=== PATIENT | female | born 1965 | race Caucasian/White ===

== ENCOUNTER 2020-07-29 13:59 | Emergency (ER) | payer MEDICARE, MEDICAID ==
[~2020-07-29] VITALS: Ht 175.3 cm; Wt 57.0 kg
[~2020-07-29 13:59] MED LIST: IBUP-1985 PO
--- NOTE | 2020-07-29 14:00 | NUR ---
PATIENT IN ROOM 20 IN ER OVERFLOW AND IS NOT COOPERATING WITH OUR INTAKE. PATIENT IS REFUSING TO GET UNDRESSED. SECURITY CALLED FOR STANDBY. PATIENT IS ANGRY AND YELLING OUT. I AGREED TO ALLOW HER TO WEAR HER BRA AND HER UNDERWEAR AFTER EXAMINING THEM FOR CONTRABAND. NONE NOTED.
[2020-07-29] MEDS ORDERED: ibuprofen tablet 400 MG TABLET PO ONE (14:15)
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
[2020-07-29 14:52] LABS: BASOPHILS % (AUTO) 0.5 % (0-1); EOSINOPHILS # (AUTO) 0.1 X10'3 (0-0.9); EOSINOPHILS % (AUTO) 0.9 % (0-6); HEMATOCRIT 41.6 % (35.0-45.0); HEMOGLOBIN 14.2 g/dl (12.0-16.0); LYMPHOCYTES # (AUTO) 2.4 X10'3 (1.1-4.8); LYMPHOCYTES % (AUTO) 27.8 % (21-51); MEAN CORPUSCULAR HEMOGLOBIN 30.2 PG (27.0-31.0); MEAN CORPUSCULAR VOLUME 88.8 FL (78-98); MEAN PLATELET VOLUME 6.7 FL (7.4-10.4); MONOCYTES # (AUTO) 0.7 X10'3 (0-0.9); MONOCYTES % (AUTO) 7.7 % (2-12); NEUTROPHILS # (AUTO) 5.6 X10'3 (1.8-7.7); NEUTROPHILS % (AUTO) 63.1 % (42-75); PLATELET COUNT 347 X10'3 (140-440); RED BLOOD COUNT 4.69 X10'6 (4.20-5.60); RED CELL DISTRIBUTION WIDTH 13.4 % (11.5-14.5); WHITE BLOOD COUNT 8.8 X10'3 (4.5-11.0)
--- NOTE | 2020-07-29 15:01 | NUR ---
Patient's mother called. Mother stated her about 1 week ago in [place]. has not lived with patient for years because he was an alcoholic.
[2020-07-29] MEDS ORDERED: PRAZ5CAP PO (15:04)
[2020-07-29] MEDS ORDERED: FLUO20CA39 PO (15:07)
[2020-07-29] MEDS ORDERED: TRAZ-256 PO (15:07)
[2020-07-29] MEDS ORDERED: TOPI200T PO (15:07)
[2020-07-29 15:08] LABS: ALANINE AMINOTRANSFERASE 18 U/L (12-78); ALBUMIN 3.7 G/DL (3.4-5.0); ALBUMIN/GLOBULIN RATIO 1.2 (1.1-1.5); ALKALINE PHOSPHATASE 67 IU/L (46-116); ANION GAP 8 (8-16); ASPARTATE AMINO TRANSFERASE 11 U/L (10-37); BILIRUBIN,TOTAL 0.4 MG/DL (0.1-1.0); BLOOD UREA NITROGEN 24 MG/DL (7-18); BUN/CREATININE RATIO 26.4 (6.6-38.0); CHLORIDE 107 MMOL/L (99-107); CREATININE 0.91 MG/DL (0.40-0.90); GLUCOSE 100 MG/DL (70-104); POTASSIUM 3.4 MMOL/L (3.5-5.1); SODIUM 141 MMOL/L (135-145); TOTAL CARBON DIOXIDE 26.5 MMOL/L (24-32); TOTAL PROTEIN 6.7 G/DL (6.4-8.2); eGFR 64 ML/MIN
[2020-07-29 15:18] LABS: ETHANOL < 0.010 GM/DL (0.0-0.010)
--- NOTE | 2020-07-29 15:24 | NUR ---
PT'S MOTHER, ISABEL'S PHONE NUMBER IS [phone].
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
[2020-07-29 15:42] LABS: URINE HCG NEGATIVE (NEG)
[2020-07-29 15:44] LABS: URINE AMPHETAMINE SCREEN NEGATIVE (Neg); URINE BARBITUATE SCREEN NEGATIVE (Neg); URINE BENZODIAZEPINES SCREEN NEGATIVE (Neg); URINE CANNABINOID SCREEN NEGATIVE (Neg); URINE COCAINE SCREEN POSITIVE (Neg); URINE METHADONE SCREEN NEGATIVE (Neg); URINE OPIATE SCREEN NEGATIVE (Neg); URINE PHENCYCLIDINE SCREEN NEGATIVE (Neg)
--- NOTE | 2020-07-29 15:52 | NUR ---
Need more urine for a u/a. Not enough given. Continue to monitor.
--- NOTE | 2020-07-29 15:56 | NUR ---
PACKET FAXED TO [facility]
[2020-07-29 16:19] LABS: CLARITY,URINE CLEAR (Clear); COLOR,URINE STRAW (Yellow); GLUCOSE, URINE NEGATIVE (Neg); KETONES,URINE NEGATIVE (Neg); LEUKOCYTE ESTERASE ,URINE SMALL (Neg); NITRITES, URINE NEGATIVE (Neg); OCCULT BLOOD,URINE SMALL (Neg); PROTEIN,URINE NEGATIVE (Neg); UROBILINOGEN,URINE 0.2 E.U/dL (0.2-1.0)
[2020-07-29 16:21] LABS: UA COLLECTION TYPE CLN CATCH MIDSTREAM
[2020-07-29 16:35] LABS: BACTERIA,URINE FEW /HPF (Neg); RBC,URINE 0-2 /HPF (0-2); SQUAMOUS EPITHELIAL CELL,UR FEW /LPF (FEW); WBC,URINE 0-4 /HPF (0-4)
--- NOTE | 2020-07-29 17:35 | NUR ---
Andrew URIOSTEGUI, evaluating patient. Continue to monitor.
--- NOTE | 2020-07-29 18:30 | NUR ---
MARY ALICE FUENTES CALLED [facility] BECAUSE PATIENT IS DR CARRILLO'S PATIENT OUTSIDE THE HOSPITAL. PER ALFREDO, [facility] HAS A FEMALE BED AVAILABLE
[2020-07-29] MEDS ORDERED: FLUoxetine 20mg capsule PO SCH (20:00)
[2020-07-29] MEDS ORDERED: topiramate 100mg tablet PO SCH (20:00)
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
[2020-07-29] MEDS ORDERED: prazosin 5mg capsule PO SCH (21:00)
[2020-07-29] MEDS ORDERED: traZODone 150mg tablet PO SCH (21:00)
--- NOTE | 2020-07-29 22:30 | NUR ---
PATIENT APPEARS TO BE SLEEPING ON HER BACK, EYES CLOSED RR EVEN AND UNLABORED, OCASSIONALLT SNORING
--- NOTE | 2020-07-29 23:33 | NUR ---
PER JODI [facility] RN: "WE NEVER GOT AHOLD OF DR CARRILLO, SO THE PATIENT CAN NOT COME UP HERE" SHE IS A PATIENT OF DR CARRILLO'S
[2020-07-30 00:23] VITALS: BP 134/73
[2020-07-30] MEDS ORDERED: FLUoxetine 20mg capsule PO SCH (08:00)
== END 2020-07-30 00:29 ==
LOC: ER 13:59
DX: F29 Unspecified psychosis not due to a substance or known physiological condition (principal); R45.1 Restlessness and agitation; F20.9 Schizophrenia, unspecified; Z60.2 Problems related to living alone; Z79.899 Other long term (current) drug therapy
CPT/HCPCS: 36415; 80053; 80305; 80320; 81001; 81025; 84443; 85025; 87088; 87635; C9803

== ENCOUNTER 2020-12-31 12:09 | Emergency (ER) | payer MEDICARE, MEDICAID ==
[~2020-12-31] VITALS: Ht 175.3 cm; Wt 71.0 kg
[~2020-12-31 12:09] MED LIST changes: +FLUO20CA39 PO; -IBUP-1985 PO; +NAPR-56 PO; +PALI3TAB5 PO; +PRAZ5CAP PO; +TOP100T PO; +TRAZ150T78 PO; +etomidate 2mg/ml inj. ONE; +rocuronium 10mg/ml inj IV ONE
[2020-12-31] MEDS ORDERED: epiNEPHrine 1 mg/ml inj IM STA (12:18)
[2020-12-31] MEDS ORDERED: diphenhydrAMINE 50 mg/ml inj IM ONE (12:20)
[2020-12-31] MEDS ORDERED: racepinephrine 11.25mg/0.5ml nebule ONE (12:22)
[2020-12-31] MEDS ORDERED: racepinephrine 11.25mg/0.5ml nebule IH PRN (12:30)
[2020-12-31] MEDS ORDERED: dexamethasone sod phosphate 10mg/ml inj IV STA (13:07)
[2020-12-31] MEDS ORDERED: famotidine/PF 10 mg/ml inj IV ONE (13:10)
--- NOTE | 2020-12-31 13:54 | NUR ---
called by [facility] officer working with pt with mental health, stated he is the pt ride home. call once dc'timo [phone] Addendum: 12/31/20 at 1356 by NAYELI note by karan
[2020-12-31 14:24] VITALS: BP 146/89
[2020-12-31] MEDS ORDERED: EPIN0.3P3 IM (14:34)
[2020-12-31] MEDS ORDERED: PRED50TA PO (14:34)
[2020-12-31] MEDS ORDERED: DIPH-423 PO (14:35)
[2020-12-31] MEDS ORDERED: FAMO40TA73 PO (14:35)
== END 2020-12-31 14:56 | disposition home or self-care (01) ==
LOC: ER 12:10
DX: T78.2XXA Anaphylactic shock, unspecified, initial encounter (principal); R60.9 Edema, unspecified; F20.9 Schizophrenia, unspecified; Z60.2 Problems related to living alone; Z79.899 Other long term (current) drug therapy; Y92.89 Other specified places as the place of occurrence of the external cause
CPT/HCPCS: 94640; 96372; 96374; 96375; 99291; J0171; J1100; J1200; J3490; 94760

== ENCOUNTER 2021-02-12 13:06 | Emergency (ER) | payer MEDICARE, MEDICAID ==
[~2021-02-12] VITALS: Ht 175.3 cm; Wt 79.5 kg
[~2021-02-12 13:06] MED LIST changes: +DIPH-423 PO; +EPIN0.3P3 IM; +FAMO40TA73 PO; +PRED50TA PO; -etomidate 2mg/ml inj. ONE; -rocuronium 10mg/ml inj IV ONE
[2021-02-12 13:21] VITALS: BP 165/81
[2021-02-12] MEDS ORDERED: acetaminophen 325mg tablet PO ONE (13:35)
== END 2021-02-12 13:54 | disposition home or self-care (01) ==
LOC: ER 13:08
DX: R51.9 Headache, unspecified (principal); R19.7 Diarrhea, unspecified; R06.02 Shortness of breath; R50.9 Fever, unspecified; F20.9 Schizophrenia, unspecified; Z60.2 Problems related to living alone; Z88.8 Allergy status to other drugs, medicaments and biological substances; Z79.899 Other long term (current) drug therapy
CPT/HCPCS: 99281

== ENCOUNTER 2024-09-23 14:01 | Emergency (ER) | payer MEDICARE, MEDICAID ==
[~2024-09-23] VITALS: Ht 175.3 cm; Wt 93.6 kg
--- NOTE | 2024-09-23 14:21 | Physician Documentation ---
History of Present Illness ~ Chief Complaint: Hypertension Stated Complaint: HIGH BLOOD PRESSURE Time Seen by MD: 15:01 OK to notify your PCP?: Yes Primary Medical Doctor: GILA HARRY Source: patient Mode of Arrival: POV Exam Limitations: no limitations HPI 59-year-old female presents for high blood pressure. She is staying at a local rehab program and the nurse there took her blood pressure and told her to come over here. Systolic in the 160s. No signs or symptoms related to hypertension otherwise. Does not take any medication or have any diagnosis of hypertension. Medication Reconciliation Allergies: Coded Allergies: No Known Allergies (Unverified , 03/23/09) Scheduled Diphenhydramine Hcl (Benadryl), 25 MG PO DAILY Epinephrine (Epipen 2-Rajat), 1 SYR IM ONCE Famotidine (Pepcid), 1 TAB PO DAILY Fluoxetine Hcl* (Prozac*), 1 CAP PO DAILY Naproxen (Naproxen), 500 MG PO BID@0830,1730 Paliperidone (Paliperidone ER), 6 MG PO DAILY Prazosin Hcl (Minipress), 1 CAP PO HS Prednisone (Prednisone), 1 TAB PO DAILY Topiramate (Topamax), 200 MG PO BID Trazodone Hcl (Trazodone Hcl), 300 MG PO HS Past Medical History Past Medical History: Psychosis, Schizophrenia Past Surgical History: noncontributory Alcohol Use: None Lives with: Alone Lives In: Home Review of Systems All Other Systems at this time: Reviewed and Negative Physical Exam Vital Signs: RN Vital Signs have been reviewed: Yes, Temperature: 98.1, Source: Temporal, Heart Rate: 82, Respiratory Rate: 15, BP: 166/104, Pulse Oximetry: 96, Weight: 93.600 Pulse Oximetry Reflects: adequate oxygenation Physical Exam General: Alert, no distress. HEENT: No injection, moist mucous membranes. Neck: Full range of motion. Respiratory: No respiratory distress, equal chest rise and fall. Chest: No accessory muscle use. Cardiovascular: Regular rate and rhythm. Gastrointestinal: Nondistended. Extremities: Normal range of motion, no deformity. Neurologic: Oriented x4. Psychiatric: Normal mood and affect. Skin: Normal color, warm and dry. Progress Results/Orders Results/Orders Vital Signs 09/23/24 09/23/24 09/23/24 09/23/24 14:17 14:31 14:34 15:57 Temp 98.1 98.1 98.1 Pulse 82 77 Resp B/P (MAP) 166/104 151/81 (104) 143/73 Pulse Ox 96 98 98 Medical Decision Making Findings THIS PATIENT HAS NOT HAD A HYPERTENSION THROUGHOUT HER STAY IN THE ED. SHE HAS BORDERLINE HYPERTENSION CURRENTLY. I ATTEMPTED TO INTERVIEW PATIENT IS SHE WAS SLEEPING ON THE STERNUM. SHE STATED SHE JUST NEEDED A SANDWICH AND SHE WAS READY TO GO Differential Dx:Considerations: Include CHF, Include HTN, essential, Include HTN, accelerated, Include HTN, malignant, Include HTN, encephalopathy, Include medical noncompliance, Include medication withdrawal, Include pulmonary edema, Include renal failure, Include -induced, Include other Departure Disposition: 01 HOME / SELF CARE / HOMELESS Impression: Primary Impression: Benign hypertension Condition: Stable Discharge Instructions: Hypertension, Adult, Hypertension, Adult, [id number] Referrals: NO PRIMARY CARE PROVIDER (PCP) Additional Comment Medical Screen Exam This patient recieved a medical screening examination. After reviewing the individual's medical complaints with presenting symptoms and performing an appropriate physical examination, it was determined that no immediate life- threatening emergency medical condition is present. This individual is also not a women having contractions. Signature Scribe Signature: j Attestation: Scribed for Lynda Steele Np by Lynda Krueger NP . 09/23/24 18:23 MARLEN PICKARD [employer] Sep 23, 2024 14:21 LYNDA STEELE NP Sep 23, 2024 15:32
[2024-09-23 14:34] VITALS: PULSE 77
[2024-09-23 15:57] VITALS: BP 143/73; RESP 18; TEMP 98.1; O2SAT 98
== END 2024-09-23 16:04 | disposition home or self-care (01) ==
LOC: ER 14:02
DX: I10 Essential (primary) hypertension (principal); F20.9 Schizophrenia, unspecified; Z79.899 Other long term (current) drug therapy; Z60.2 Problems related to living alone
CPT/HCPCS: 99282